=== PATIENT | female | born 1935 | race Caucasian/White ===

== ENCOUNTER → 2016-06-21 | Outpatient (CLI) | payer MEDICARE, OTHER ==
[~2016-06-21] MED LIST: ASCO500T20 PO; ASPI-586 PO; CALC166. PO; DENO60DI SQ; FLUT16SP; IRON15TA3 PO; LEVO25TA5 PO; LEVO75TA6 PO; LORA10TA9 PO; LSNP20T PO; MOME15OI2 TP; MULT-954 PO; OMEG300C3 PO; PRED5DRO2I; ROSU10TA PO; SCR1T1 PO; UBID200C2 PO
--- NOTE | 2016-06-21 14:12 | Diagnostic Imaging Report ---
INDICATION: Dyspnea, history of follicular lymphoma, grade II. DISCUSSION: Two views of the chest were obtained, comparison 01/04/2016. Underlying COPD is stable. Age-related degenerative changes are present throughout the thoracic spine. Normal heart size. There is no obvious hilar adenopathy on today's exam. Mild eventration of the right hemidiaphragm is stable. No focal consolidation, pleural fluid, or pneumothorax. Probable scarring within the right mid lung is again noted. IMPRESSION: 1. Stable changes of COPD. Dictated by: Dictated on workstation # [id number]
== END ==
LOC: RAD 13:01
PROVIDERS: ATTEND Internal Medicine Hematology & Oncology
DX: C82.18 Follicular lymphoma grade II, lymph nodes of multiple sites (principal)
CPT/HCPCS: 71020